=== PATIENT | female | born 1975 | race African-American/Black ===

== ENCOUNTER 2023-07-21 00:35 | Emergency (ER) | payer MEDICAID ==
[~2023-07-21] VITALS: Ht 170.2 cm; Wt 111.4 kg
[2023-07-21] MEDS ORDERED: AMOX1TAB16 PO (01:30)
[2023-07-21 01:35] VITALS: BP 135/67; PULSE 86; RESP 16; TEMP 98.3
[2023-07-21] MEDS: PERTUSS(ACELL),DIPH,TET/PF 0.5 ML SYRINGE [ADULT] IM. ONE (01:46)
[2023-07-21] MEDS: AMOX TR/POT CLAV 875 MG/125 MG TABLET PO ONE (01:47)
== END 2023-07-21 02:54 | disposition home or self-care (01) ==
LOC: EMS 00:36
DX: S81.851A Open bite, right lower leg, initial encounter (principal); F17.210 Nicotine dependence, cigarettes, uncomplicated; F12.90 Cannabis use, unspecified, uncomplicated; W54.0XXA Bitten by dog, initial encounter; Y93.89 Activity, other specified; Y92.89 Other specified places as the place of occurrence of the external cause; Y99.8 Other external cause status
CPT/HCPCS: 90471; 90715; 99283